=== PATIENT | male | born 1935 | race Two or more races ===

== ENCOUNTER 2016-07-03 09:34 | Outpatient (CLI) | payer MEDICARE, MEDICAID | END 2016-07-03 23:59 | disposition home health service (06) | LOC: WOU 09:34 | PROVIDERS: ATTEND Podiatrist Foot & Ankle Surgery | DX: E11.621 Type 2 diabetes mellitus with foot ulcer (principal); L97.422 Non-pressure chronic ulcer of left heel and midfoot with fat layer exposed; Z99.3 Dependence on wheelchair; E78.00 Pure hypercholesterolemia, unspecified; I25.10 Atherosclerotic heart disease of native coronary artery without angina pectoris; I10 Essential (primary) hypertension; Z79.899 Other long term (current) drug therapy | CPT/HCPCS: 11042; A6209; A6402 ==

== ENCOUNTER 2016-07-10 10:11 | Outpatient (CLI) | payer MEDICARE, MEDICAID | END 2016-07-10 23:59 | disposition home health service (06) | LOC: WOU 10:11 | PROVIDERS: ATTEND Podiatrist Foot & Ankle Surgery | DX: E11.621 Type 2 diabetes mellitus with foot ulcer (principal); L97.422 Non-pressure chronic ulcer of left heel and midfoot with fat layer exposed; Z83.3 Family history of diabetes mellitus; G35 Multiple sclerosis; I25.10 Atherosclerotic heart disease of native coronary artery without angina pectoris; I10 Essential (primary) hypertension; E78.00 Pure hypercholesterolemia, unspecified; Z79.82 Long term (current) use of aspirin | CPT/HCPCS: 11042; A6209; A6402 ==

== ENCOUNTER 2016-07-17 08:57 | Outpatient (CLI) | payer MEDICARE, MEDICAID | END 2016-07-17 23:59 | disposition home health service (06) | LOC: WOU 08:57 | PROVIDERS: ATTEND Podiatrist Foot & Ankle Surgery | DX: E11.621 Type 2 diabetes mellitus with foot ulcer (principal); L97.422 Non-pressure chronic ulcer of left heel and midfoot with fat layer exposed; G35 Multiple sclerosis; Z99.3 Dependence on wheelchair; I25.10 Atherosclerotic heart disease of native coronary artery without angina pectoris; I10 Essential (primary) hypertension; E78.00 Pure hypercholesterolemia, unspecified; Z79.82 Long term (current) use of aspirin | CPT/HCPCS: 11042; A6209; A6402 ==

== ENCOUNTER 2016-07-24 08:38 | Outpatient (CLI) | payer MEDICARE, MEDICAID | END 2016-07-24 23:59 | disposition home health service (06) | LOC: WOU 08:38 | PROVIDERS: ATTEND Podiatrist Foot & Ankle Surgery | DX: E11.621 Type 2 diabetes mellitus with foot ulcer (principal); L97.422 Non-pressure chronic ulcer of left heel and midfoot with fat layer exposed; G35 Multiple sclerosis; I25.10 Atherosclerotic heart disease of native coronary artery without angina pectoris; I10 Essential (primary) hypertension; E78.00 Pure hypercholesterolemia, unspecified; Z79.82 Long term (current) use of aspirin; Z79.899 Other long term (current) drug therapy | CPT/HCPCS: 11042; A6209; A6402 ==

== ENCOUNTER → 2016-07-31 | Outpatient (CLI) | payer MEDICARE, MEDICAID | END | disposition home health service (06) | LOC: WOU 09:05 | PROVIDERS: ATTEND Podiatrist Foot & Ankle Surgery | DX: E11.9 Type 2 diabetes mellitus without complications (principal); I05.0 Rheumatic mitral stenosis; G35 Multiple sclerosis; I25.10 Atherosclerotic heart disease of native coronary artery without angina pectoris; I10 Essential (primary) hypertension; Z79.82 Long term (current) use of aspirin | CPT/HCPCS: A6402; G0463 ==

== ENCOUNTER 2016-08-14 08:59 | Outpatient (CLI) | payer MEDICARE, MEDICAID | END 2016-08-14 23:59 | disposition home health service (06) | LOC: WOU 08:59 | PROVIDERS: ATTEND Podiatrist Foot & Ankle Surgery | DX: B35.1 Tinea unguium (principal); I25.10 Atherosclerotic heart disease of native coronary artery without angina pectoris; I10 Essential (primary) hypertension; G35 Multiple sclerosis | CPT/HCPCS: A6402; G0463 ==

== ENCOUNTER 2016-11-06 09:28 | Outpatient (CLI) | payer MEDICARE, MEDICAID | END 2016-11-06 23:59 | disposition home health service (06) | LOC: WOU 09:28 | PROVIDERS: ATTEND Podiatrist Foot & Ankle Surgery | DX: B35.3 Tinea pedis (principal); E11.41 Type 2 diabetes mellitus with diabetic mononeuropathy; G35 Multiple sclerosis; I10 Essential (primary) hypertension | CPT/HCPCS: G0463 ==

== ENCOUNTER 2017-01-05 09:20 | Outpatient (CLI) | payer MEDICARE, MEDICAID | END 2017-01-05 23:59 | disposition home health service (06) | LOC: WOU 09:20 | PROVIDERS: ATTEND Podiatrist Foot & Ankle Surgery | DX: Z09 Encounter for follow-up examination after completed treatment for conditions other than malignant neoplasm (principal); E11.9 Type 2 diabetes mellitus without complications; B35.1 Tinea unguium; B35.3 Tinea pedis | CPT/HCPCS: G0463 ==

== ENCOUNTER 2017-07-09 09:40 | Outpatient (CLI) | payer MEDICARE, MEDICAID | END 2017-07-09 23:59 | disposition home health service (06) | LOC: WOU 09:40 | PROVIDERS: ATTEND Surgery | DX: S51.801A Unspecified open wound of right forearm, initial encounter (principal); S61.401A Unspecified open wound of right hand, initial encounter; X58.XXXA Exposure to other specified factors, initial encounter; Y92.89 Other specified places as the place of occurrence of the external cause; E11.41 Type 2 diabetes mellitus with diabetic mononeuropathy; B35.1 Tinea unguium; L60.3 Nail dystrophy; I25.10 Atherosclerotic heart disease of native coronary artery without angina pectoris; E11.621 Type 2 diabetes mellitus with foot ulcer; L97.429 Non-pressure chronic ulcer of left heel and midfoot with unspecified severity; E78.00 Pure hypercholesterolemia, unspecified; I10 Essential (primary) hypertension; Z79.84 Long term (current) use of oral hypoglycemic drugs; Z79.899 Other long term (current) drug therapy | CPT/HCPCS: 11042; A6402 ==

== ENCOUNTER 2017-07-20 12:57 | Outpatient (CLI) | payer MEDICARE, MEDICAID | END 2017-07-20 23:59 | disposition home health service (06) | LOC: WOU 12:57 | PROVIDERS: ATTEND Surgery | DX: E11.41 Type 2 diabetes mellitus with diabetic mononeuropathy (principal); B35.3 Tinea pedis; L60.3 Nail dystrophy; G35 Multiple sclerosis; I25.10 Atherosclerotic heart disease of native coronary artery without angina pectoris; I10 Essential (primary) hypertension; E78.00 Pure hypercholesterolemia, unspecified; E11.621 Type 2 diabetes mellitus with foot ulcer; L97.429 Non-pressure chronic ulcer of left heel and midfoot with unspecified severity; Z79.84 Long term (current) use of oral hypoglycemic drugs; Z79.899 Other long term (current) drug therapy | CPT/HCPCS: G0463 ==

== ENCOUNTER 2018-01-07 08:50 | Outpatient (CLI) | payer MEDICARE, MEDICAID | END 2018-01-07 23:59 | disposition home health service (06) | LOC: WOU 08:50 | PROVIDERS: ATTEND Podiatrist Foot & Ankle Surgery | DX: E11.621 Type 2 diabetes mellitus with foot ulcer (principal); L97.522 Non-pressure chronic ulcer of other part of left foot with fat layer exposed; L60.0 Ingrowing nail; E11.41 Type 2 diabetes mellitus with diabetic mononeuropathy; B35.3 Tinea pedis; L60.3 Nail dystrophy; Z79.84 Long term (current) use of oral hypoglycemic drugs; Z98.42 Cataract extraction status, left eye; Z98.41 Cataract extraction status, right eye; I25.119 Atherosclerotic heart disease of native coronary artery with unspecified angina pectoris; I10 Essential (primary) hypertension; G35 Multiple sclerosis; Z79.899 Other long term (current) drug therapy | CPT/HCPCS: 11042; 11730; A6402; Z7610 ==

== ENCOUNTER 2018-04-08 09:20 | Outpatient (CLI) | payer MEDICARE, MEDICAID | END 2018-04-08 23:59 | disposition home health service (06) | LOC: WOU 09:20 | PROVIDERS: ATTEND Podiatrist Foot & Ankle Surgery | DX: E11.621 Type 2 diabetes mellitus with foot ulcer (principal); L97.422 Non-pressure chronic ulcer of left heel and midfoot with fat layer exposed; L60.0 Ingrowing nail; L03.032 Cellulitis of left toe; B35.3 Tinea pedis; E11.41 Type 2 diabetes mellitus with diabetic mononeuropathy; L60.3 Nail dystrophy; Z79.84 Long term (current) use of oral hypoglycemic drugs; Z98.42 Cataract extraction status, left eye; Z98.41 Cataract extraction status, right eye; G35 Multiple sclerosis; I10 Essential (primary) hypertension; M19.90 Unspecified osteoarthritis, unspecified site | CPT/HCPCS: 11042; 11730; A6402; J3490 ==

== ENCOUNTER 2018-04-15 09:35 | Outpatient (CLI) | payer MEDICARE, MEDICAID | END 2018-04-15 23:59 | disposition home health service (06) | LOC: WOU 09:35 | PROVIDERS: ATTEND Podiatrist Foot & Ankle Surgery | DX: E11.621 Type 2 diabetes mellitus with foot ulcer (principal); L97.422 Non-pressure chronic ulcer of left heel and midfoot with fat layer exposed; E11.41 Type 2 diabetes mellitus with diabetic mononeuropathy; B35.3 Tinea pedis; L60.3 Nail dystrophy; Z98.42 Cataract extraction status, left eye; Z98.41 Cataract extraction status, right eye; G35 Multiple sclerosis; Z79.84 Long term (current) use of oral hypoglycemic drugs | CPT/HCPCS: 11042; A6402 ==

== ENCOUNTER 2018-04-29 09:42 | Outpatient (CLI) | payer MEDICARE, MEDICAID | END 2018-04-29 23:59 | disposition home health service (06) | LOC: WOU 09:42 | PROVIDERS: ATTEND Podiatrist Foot & Ankle Surgery | DX: E11.621 Type 2 diabetes mellitus with foot ulcer (principal); L97.428 Non-pressure chronic ulcer of left heel and midfoot with other specified severity; E11.41 Type 2 diabetes mellitus with diabetic mononeuropathy; B35.3 Tinea pedis; L60.3 Nail dystrophy; M79.672 Pain in left foot; I10 Essential (primary) hypertension; Z79.84 Long term (current) use of oral hypoglycemic drugs; Z79.899 Other long term (current) drug therapy | CPT/HCPCS: A6402; G0463 ==

== ENCOUNTER 2018-05-20 10:00 | Outpatient (CLI) | payer MEDICARE, MEDICAID | END 2018-05-20 23:59 | disposition home health service (06) | LOC: WOU 10:00 | PROVIDERS: ATTEND Podiatrist Foot & Ankle Surgery | DX: E11.41 Type 2 diabetes mellitus with diabetic mononeuropathy (principal); Z86.31 Personal history of diabetic foot ulcer; B35.3 Tinea pedis; L60.3 Nail dystrophy; G35 Multiple sclerosis; I10 Essential (primary) hypertension | CPT/HCPCS: A6402; G0463 ==

== ENCOUNTER 2018-11-04 09:07 | Outpatient (CLI) | payer MEDICARE, MEDICAID | END 2018-11-04 23:59 | disposition home or self-care (01) | LOC: WOU 09:07 | PROVIDERS: ATTEND Podiatrist Foot & Ankle Surgery | DX: L60.0 Ingrowing nail (principal); L03.032 Cellulitis of left toe; G35 Multiple sclerosis; E11.9 Type 2 diabetes mellitus without complications; Z86.31 Personal history of diabetic foot ulcer; Z79.84 Long term (current) use of oral hypoglycemic drugs | CPT/HCPCS: 11730; J3490 ==

== ENCOUNTER 2019-09-22 09:30 | Outpatient (CLI) | payer MEDICARE, MEDICAID | END 2019-09-22 23:59 | disposition home health service (06) | LOC: WOU 09:30 | PROVIDERS: ATTEND Podiatrist Foot & Ankle Surgery | DX: L60.0 Ingrowing nail (principal); L60.3 Nail dystrophy; M79.672 Pain in left foot; R26.2 Difficulty in walking, not elsewhere classified | CPT/HCPCS: G0463 ==